=== PATIENT | female | born 1985 | race African-American/Black ===

== ENCOUNTER 2017-10-01 16:27 | Emergency (ER) | payer OTHER ==
[~2017-10-01] VITALS: Ht 165.1 cm; Wt 63.5 kg
[2017-10-01] MEDS ORDERED: IBUPROFEN 400 MG TABLET PO ONE (17:30)
[2017-10-01] MEDS ORDERED: IBUPROFEN 400 MG TABLET ONE (17:36)
--- NOTE | 2017-10-01 17:39 | NUR ---
pt states not . waiver signed. radiology aware.
== END 2017-10-01 19:28 | disposition home or self-care (01) ==
LOC: ER 16:32
DX: S90.31XA Contusion of right foot, initial encounter (principal); J45.909 Unspecified asthma, uncomplicated; W22.8XXA Striking against or struck by other objects, initial encounter; Y93.89 Activity, other specified; Y92.89 Other specified places as the place of occurrence of the external cause; Y99.8 Other external cause status
CPT/HCPCS: 73630; 99284; A4606